=== PATIENT | male | born 1960 | race Caucasian/White ===

== ENCOUNTER 2019-04-07 09:40 | Emergency (ER) | payer OTHER, SELFPAY ==
[2019-04-07 09:55] VITALS: BP 131/82; PULSE 73; RESP 18; TEMP 36.7; O2SAT 96
--- NOTE | 2019-04-07 09:59 | ED.GENADUL_ITS ---
Discharge Plan Disposition Patient Disposition: HOME Condition: Improving Discharge Details Chief Complaint: EyeProblem Clinical Impression: Abrasion of cornea, right Primary Care Provider: Ganesh Knox ED Provider: Paresh Osei Home Meds and New Rx's Prescriptions: Continued simvastatin 40 mg Tablet 40 mg PO DAILY RF: 0 citalopram 20 mg Tablet 20 mg PO DAILY RF: 0 Discharge Instructions Instructions: Corneal Abrasion (ED) Additional Instructions: Please use erythromycin ointment 3-4 times daily for 4 to 5 days time. Return or see regular doctor if you develop increased redness, pain, or any other acute concern. May resume normal routine and activities. Medical Decision Making 58-year-old male presents with right eye foreign body sensation after cutting wood yesterday. Visual acuity is preserved and is symmetric. The right eye conjunctival and sclera are injected, there is a shallow right corneal abrasion outside the axis of vision. Fluorescein exam performed and no Nayeli sign. We will treat with erythromycin ointment. He is stable for outpatient management and understands plan of care and anticipated course of resolution. [facility] General Mode of arrival: ambulatory . Date/Time Provider Initiated Documentation: 04/07/19 09:46 . Limitations to Documentation: no limitations . Information obtained by: patient . History of Present Illness 58 year old M presents to the emergency department with the chief complaint of Splitting wood yesterday. Right eye foreign body sensation today, described as mild, Quality is described as constant, and is localized to the eyes and right. Patient reports no radiation. Patient started experiencing this hour(s) and it has been constant. No relieving factors improve symptom(s), No exacerbating factors reported . Patient did receive the following treatments prior to arrival, none Related Data Home Medications Medication Instructions Recorded Confirmed citalopram 20 mg PO DAILY 04/07/19 04/07/19 simvastatin 40 mg PO DAILY 04/07/19 04/07/19 Allergies Allergy/AdvReac Type Severity Reaction Status Date / Time No Known Allergies Allergy Unverified 04/07/19 10:00 General Stated Complaint: EyeProblem SILVIO: 4 Review of Systems Narrative: Otherwise well. 4 systems reviewed and negative. [facility] Medical History (Updated 04/07/19 @ 10:00 by Kaley Lopez) Seizure disorder (Chronic) Social History Smoking/Tobacco Use Status: Former Tobacco Use Alcohol Intake: former Drug use: Never Substance use type: does not use Do you feel safe at home: Yes Exam Narrative Exam Narrative: GEN: awake, alert, oriented 3. Pleasant, well groomed, interactive. HEAD: Normocephalic, atraumatic ENT: Mucous membranes moist, oropharynx unremarkable, External ear exam unremarkable EYES: PERRL, EOMI. right eye injection, small corneal abrasion right temporal aspect of slight axis of vision. Patient wears reading glasses which he did not have. 20/100 right, left, bilateral NECK: Full ROM, no SHON, no menigismus EXT: Full ROM, no edema, no rash Neuro: Grossly normal neurologic exam, conversant, interactive. Psych: Speech fluent, thoughts congruent, affect normal Course Vital Signs Vital signs: Vital Signs Temperature 36.7 C 04/07/19 09:55 Pulse 73 04/07/19 09:55 Respiratory Rate 18 04/07/19 09:55 Blood Pressure 131/82 04/07/19 09:55 Pulse Oximetry 96 04/07/19 09:55 Temperature 36.7 C 04/07/19 09:55 Temperature Source Tympanic 04/07/19 09:55 Pulse 73 04/07/19 09:55 Respiratory Rate 18 04/07/19 09:55 Blood Pressure 131/82 04/07/19 09:55 Blood Pressure Position Sitting 04/07/19 09:55 Pulse Oximetry 96 04/07/19 09:55 Oxygen Delivery Method Room Air 04/07/19 09:55 Oxygen Flow Rate 0 04/07/19 09:55 Pain Level 2 04/07/19 09:55
[2019-04-07] MEDS: Erythromycin Ophth Oint 3.5 GM TUBE OP (10:22)
== END 2019-04-07 10:19 | disposition home or self-care (01) ==
LOC: ER 10:22
PROVIDERS: Emergency Provider Emergency Medicine; PCP Neuromusculoskeletal Medicine & OMM
DX: S05.01XA Injury of conjunctiva and corneal abrasion without foreign body, right eye, initial encounter (principal); X58.XXXA Exposure to other specified factors, initial encounter
CPT/HCPCS: 99284; 99283

== ENCOUNTER 2023-09-12 19:43 | Emergency (ER) | payer MEDICARE, SELFPAY ==
[2023-09-12] VITALS (13 sets, daily range): BP systolic 115–180; BP diastolic 64–84; PULSE 66–83; RESP 18; TEMP 36.7; O2SAT 88–98
--- NOTE | 2023-09-12 19:45 | DI.RAD_ITS ---
Exam(s) XR CHEST 2V PA LATERAL EXAM: XR CHEST 2V PA LATERAL CLINICAL HISTORY: Cough, SOB. TECHNIQUE: 2D digital imaging was performed. COMPARISON: No exams were available for comparison FINDINGS: 2 views: Heart size is normal. The mediastinum is not widened. Lungs are clear. No infiltrates nor pleural effusions. IMPRESSION: No acute pulmonary findings. DATA REPOSITORY: RADIATION DOSE DELIVERED:
--- NOTE | 2023-09-12 20:03 | W.ED.GENAD ---
Discharge Plan Disposition Patient Disposition: Home Condition: Stable Discharge Details Clinical Impression: URI (upper respiratory infection) Primary Care Provider: Aroldo Gray ED Provider: Janet Billings Home Meds and New Rx's Prescriptions: New prednisone 20 mg tablet 60 mg PO DAILY 5 Days Qty: 15 0RF Continued donepezil 5 mg tablet PO DAILY Patient Comments: TAKE ONE TABLET BY MOUTH EVERY NIGHT AT BEDTIME atorvastatin 80 mg tablet PO DAILY Patient Comments: TAKE ONE TABLET BY MOUTH EVERY DAY escitalopram oxalate 20 mg tablet Patient Comments: TAKE ONE TABLET BY MOUTH EVERY DAY omeprazole 20 mg capsule,delayed release(DR/EC) Patient Comments: TAKE ONE CAPSULE BY MOUTH EVERY DAY aspirin 81 mg tablet,chewable 81 mg PO DAILY simvastatin 40 mg Tablet 40 mg PO DAILY citalopram 20 mg Tablet 20 mg PO DAILY Discharge Instructions Instructions: Upper Respiratory Infection (ED) Additional Instructions: Please use the albuterol inhaler as directed 1 or 2 puffs every 4-6 hours with a spacer. Take the prednisone 60 mg x 5 days. No evidence of pneumonia on the chest x-ray. Negative COVID flu and RSV. Follow up with primary care provider in 3-5 days. Return to ED sooner if any worsening or concerns. Please take Tylenol or Ibuprofen with food every 4-6 hours as needed for pain and swelling. Referrals: Aroldo Gray, [facility] [Primary Care Provider] - 3 days Discharge Data Discharge Date/Time-TO BE ENTERED AT DEPARTURE: 09/12/23 21:54 HPI General Mode of arrival: ambulatory. Date/Time Provider Initiated Documentation: 09/12/23 19:50. Limitations to Documentation: no limitations. Information obtained by: patient, RN notes reviewed and old records reviewed. HPI Narrative: 63 year old male presents with productive cough since Saturday and over the counter remedies are not helping much. Denies chest pain. Does have right upper and lower rhonchi upon auscultation. hx includes CVA, Seizure disorder, hyperlipidemia, Related Data Home Medications Medication Instructions Recorded Confirmed citalopram 20 mg tablet 20 mg PO DAILY 04/07/19 09/12/23 simvastatin 40 mg tablet 40 mg PO DAILY 04/07/19 09/12/23 aspirin 81 mg chewable tablet 81 mg PO DAILY 09/12/23 09/12/23 atorvastatin 80 mg tablet mg PO DAILY 09/12/23 donepezil 5 mg tablet mg PO DAILY 09/12/23 escitalopram oxalate 20 mg tablet mg 09/12/23 omeprazole 20 mg capsule,delayed mg 09/12/23 release prednisone 20 mg tablet 60 mg (3 x 20 mg) PO DAILY 5 days 09/12/23 #15 tabs Previous Rx's Medication Instructions Recorded prednisone 20 mg tablet 60 mg (3 x 20 mg) PO DAILY 5 days 09/12/23 #15 tabs Allergies Allergy/AdvReac Type Severity Reaction Status Date / Time No Known Allergies Allergy Unverified 09/12/23 19:55 General Stated Complaint: RespSymp SILVIO: 3 Review of Systems All systems reviewed & are unremarkable except as noted in HPI and below Respiratory Respiratory: Reports cough and Reports excessive phlegm production Exam Narrative Exam Narrative: Constitutional: Alert and oriented x3. Appears stated age. Normal body habitus. Head: Normocephalic, no trauma. Eyes: Pupils PERRL, Red reflex noted, EOM's intact. Eyelids symmetrical without lesions, discharge, or swelling. ENT: Bilateral TM's WNL, External ear normal to inspection, no mastoid TTP, swelling, or erythema, Nasal turbinates WNL, no nasal discharge. Normal dentition, Posterior pharynx WNL, no exudate. Chest: RRR, Normal S1, S2, distal pulses intact. Resp: Lungs Clear on left, rhonchi noted on right upper and lower Abdomen: Soft, non-distended, Normoactive bowel sounds all 4 quads. Musculoskeletal: Normal gait, Skin: No suspicious rashes or lesions. Capillary refill less than 2 sec. Neurologic: Cranial nerves II-XII intact. Alert and oriented x 3. Motor: No deficits noted. Sensory: Intact bilaterally all 4 extremities. Reflexes: DTR's intact bilaterally.. Hematologic/Lymphatic: No ecchymosis, no lymphadenopathy. Course Vital Signs Vital signs: Vital Signs Temperature 36.7 C 09/12/23 19:46 Pulse 70 09/12/23 19:46 Respiratory Rate 18 09/12/23 19:46 Blood Pressure 180/84 H 09/12/23 19:46 Pulse Oximetry 92 09/12/23 19:46 Temperature 36.7 C 09/12/23 19:46 Pulse 70 09/12/23 19:46 Respiratory Rate 18 09/12/23 19:46 Respiratory Effort Normal 09/12/23 19:52 Respiratory Depth Normal 09/12/23 19:52 Blood Pressure 180/84 H 09/12/23 19:46 Pulse Oximetry 92 09/12/23 19:46 Oxygen Delivery Method Room Air 09/12/23 19:46 Oxygen Flow Rate 0 09/12/23 19:46 Pain Level 0 09/12/23 19:46 Medical Decision Making 63 year old male presents with productive cough since Saturday and over the counter remedies are not helping much. Denies chest pain. Does have right upper and lower rhonchi upon auscultation. hx includes CVA, Seizure disorder, hyperlipidemia, Chest Xray and Fluvid swab ordered. Duo neb Patient o2 sat around 89% RA, additional albuterol neb ordered and 60mg Prednisone. Chest x-ray shows some mild basilar atelectasis otherwise unremarkable. Negative COVID flu RSV. 98% after second neb. Will send patient home with albuterol inhaler and prednisone stent. This text was generated using [employer] dictation system, please disregard any oddities of phrase or misspellings. Imaging Data Radiologic Study: Imaging: X-Ray Radiologist's impression: TECHNIQUE: Imaging protocol: Radiologic exam of the chest. Views: 2 views. COMPARISON: No relevant prior studies available. FINDINGS: Lungs: Mild bibasilar atelectasis. Lungs are otherwise clear. Pleural spaces: Unremarkable. No pleural effusion. No pneumothorax. Heart/Mediastinum: Unremarkable. No cardiomegaly. Bones/joints: Mild degenerative changes of the spine and shoulders. No acute fracture. IMPRESSION: Mild bibasilar atelectasis and chronic osseous changes. Otherwise unremarkable chest. Thank you for allowing us to participate in the care of your patient. Dictated and Authenticated by: Jamaal Weston MD Lab Data Lab results reviewed: Yes I reviewed the patient's lab results. Labs: Laboratory Tests Range/Units 09/12/23 20:04 COVID-19 Source Nasopharynx SARS-CoV-2 (PCR) (Negative) Negative Influenza Type A (PCR) (Negative) Negative Influenza Type B (PCR) (Negative) Negative RSV (PCR) (Negative) Negative Quality:SDOH Health Related Social Needs: No Data to Display PFSH All Active Problems (Updated 09/12/23 @ 21:31 by Janet Billings NP) URI (upper respiratory infection) (Acute) Medical History Seizure disorder Social History Smoking/Tobacco Use Status: Former Tobacco Use Smoking risk assessment performed?: Yes Alcohol Intake: former Drug use: Never Substance use type: does not use Do you feel safe at home: Yes
[2023-09-12] MEDS: Albuterol/Ipratropium 3 ML UPD VIAL UPD (20:14)
[2023-09-12] MEDS: Benzonatate 100 MG CAP PO (20:14)
[2023-09-12 20:51] LABS: COVID-19 PCR Negative (Negative); Influenza A PCR Negative (Negative); Influenza B PCR Negative (Negative); RSV PCR Negative (Negative)
[2023-09-12 20:54] LABS: Source Nasopharynx
--- NOTE | 2023-09-12 21:05 | DI.VRAD_ITS ---
PROCEDURE INFORMATION: Exam: XR Chest Exam date and time: 09/12/2023 8:32 PM Age: 63 years old Clinical indication: Cough and shortness of breath TECHNIQUE: Imaging protocol: Radiologic exam of the chest. Views: 2 views. COMPARISON: No relevant prior studies available. FINDINGS: Lungs: Mild bibasilar atelectasis. Lungs are otherwise clear. Pleural spaces: Unremarkable. No pleural effusion. No pneumothorax. Heart/Mediastinum: Unremarkable. No cardiomegaly. Bones/joints: Mild degenerative changes of the spine and shoulders. No acute fracture. IMPRESSION: Mild bibasilar atelectasis and chronic osseous changes. Otherwise unremarkable chest. Dictated and Authenticated by: Jamaal Weston MD. Ordering:JEFF Gonzales MD
[2023-09-12] MEDS: Albuterol 2.5 MG/3 ML INH SOLN VIAL UPD (21:15)
[2023-09-12] MEDS: predniSONE 20 MG TAB 60 MG PO (21:15)
[2023-09-12] MEDS: Inhaler, Assist Device 1 EACH MC (21:51)
[2023-09-12] MEDS: Albuterol HFA 8 GM 60 PUFF INH IH (21:51)
== END 2023-09-12 21:54 | disposition home or self-care (01) ==
LOC: ER 21:54
PROVIDERS: Emergency Provider Registered Nurse Emergency; PCP Nurse Practitioner Family
DX: J06.9 Acute upper respiratory infection, unspecified (principal); E78.5 Hyperlipidemia, unspecified; G40.909 Epilepsy, unspecified, not intractable, without status epilepticus; Z86.73 Personal history of transient ischemic attack (TIA), and cerebral infarction without residual deficits; Z79.82 Long term (current) use of aspirin; Z79.899 Other long term (current) drug therapy; Z87.891 Personal history of nicotine dependence
CPT/HCPCS: 87637; 99284; 71046; J7512; J7613; J7620

== ENCOUNTER 2024-01-31 15:43 | Outpatient (REF) | payer MEDICARE, SELFPAY ==
[2024-01-31 21:23] LABS: Abs Immature Grans 0.29 10^3/uL (0.0-0.06); HCT 42.3 % (40.0-50.0); MCH 29.3 pg (27.0-33.0); MCHC 33.1 % (32.0-36.0); MCV 89 fL (80-95); MPV 11.2 fL (8.0-11.0); Platelet Count 238 10^3/uL (130-400); RBC 4.78 10^6/uL (4.36-5.78); WBC 7.46 10^3/uL (4.4-10.8)
[2024-01-31 21:37] LABS: ALT 31 U/L (16-63); AST 31 U/L (15-37); Albumin 3.4 g/dL (3.4-5.0); Alkaline Phosphatase 85 U/L (46-116); Anion Gap 9.1 mmol/L (3-11); BUN 15 mg/dL (7-18); Bilirubin, Total 0.58 mg/dL (0.2-1.0); CO2 28.9 mmol/L (21.0-32.0); Calcium 9.1 mg/dL (8.5-10.1); Chloride 98 mmol/L (98-107); Glucose 96 mg/dL (74-106); Potassium 3.8 mmol/L (3.5-5.1); Sodium 136 mmol/L (136-145); Total Protein 6.9 g/dL (6.4-8.2)
[2024-01-31 21:42] LABS: Absolute Neutrophil Count 5.07 10^3/uL (1.2-6.7); Atypical Lymphocytes % 2 %
[2024-01-31 21:43] LABS: Absolute Basophil Count 0.07 10^3/uL (0.0-0.2); Absolute Eosinophil Count 0.15 10^3/uL (0.0-0.7); Absolute Lymphocyte Count 1.12 10^3/uL (1.2-3.4); Absolute Monocyte Count 0.97 10^3/uL (0.1-0.8); Diff Comment Manual Differential; Metamyelocytes % 1; RBC Morphology Normal
== END 2024-01-31 15:44 | disposition home or self-care (01) ==
LOC: LBN 15:43
PROVIDERS: PCP Nurse Practitioner Family; Visit Provider Nurse Practitioner Family
DX: R19.7 Diarrhea, unspecified (principal); R15.9 Full incontinence of feces
CPT/HCPCS: 80053; 85025

== ENCOUNTER 2024-03-11 05:09 | Outpatient (CLI) | payer MEDICARE, SELFPAY ==
[2024-03-11 13:37] LABS: Calculated LDL 59 mg/dL (<100); Cholesterol 126 mg/dL (<200); HDL Cholesterol 37 mg/dL (40-60); Triglyceride 152 mg/dL (<150)
[2024-03-11 19:27] LABS: PSA, Screening 0.4 ng/mL (<=4.5)
== END 2024-03-11 05:10 | disposition home or self-care (01) ==
LOC: LOS 05:09
PROVIDERS: PCP Nurse Practitioner Family; Visit Provider Nurse Practitioner Family
DX: Z13.1 Encounter for screening for diabetes mellitus (principal); Z13.220 Encounter for screening for lipoid disorders; Z12.5 Encounter for screening for malignant neoplasm of prostate
CPT/HCPCS: 36415; 80061; 84153; 83036

== ENCOUNTER → 2024-07-09 08:16 | Outpatient (BNVA) | payer MEDICARE, SELFPAY | PROVIDERS: PCP Nurse Practitioner Family; Referring Provider Nurse Practitioner Family; Visit Provider Nurse Practitioner Adult Health | DX: R47.01 Aphasia (principal); R41.89 Other symptoms and signs involving cognitive functions and awareness; F01.50 Vascular dementia, unspecified severity, without behavioral disturbance, psychotic disturbance, mood disturbance, and anxiety | CPT/HCPCS: 99215; G2212 ==

== ENCOUNTER 2024-08-05 01:12 | Outpatient (CLI) | payer MEDICARE, SELFPAY ==
--- NOTE | 2024-08-05 07:30 | DI.MRI_ITS ---
Exam(s) MR BRAIN WO EXAM: MR BRAIN WO CLINICAL HISTORY: aphasia, cog. impairment, hx stroke,r47.01 TECHNIQUE: Multiplanar multisequence MRI of the brain was performed. COMPARISON: MR MR BRAIN WO CONTRAST from 03/12/2022 FINDINGS: CEREBRAL PARENCHYMA: There is no evidence of intracranial hemorrhage, new mass effect, or shift of midline structures. Th ere are no extra-axial fluid collections. Ventricles are not enlarged or shifted. There is no significant focal signal abnormality in the cerebellar hemispheres nor within the aspen, m idbrain, and thalami. There is no abnormal signal abnormality in the periventricular white matter. Previously described area of FLAIR bright signal abnormality within the subcortical white matter of t he left parietal lobe is again noted, consistent with prior infarct. However, on the present study there is a new focus of FLAIR bright signal abnormality more anteriorly in the left periventricular white matter which also exhibits restricted diffusion, consistent with a cute or subacute ischemic event. This measures approximately 4 mm. Just anterior to this in the lef t periventricular white matter is another FLAIR bright 4-5 mm signal abnormality which was not previo usly present and which also exhibits restricted diffusion consistent with acute ischemic event. In a ddition, there are a few adjacent foci of restricted diffusion and FLAIR bright signal evident in the left occipital lobe. This was also not previously present. There is no restricted diffusion foci evident in the right-side of the brain PITUITARY GLAND: No mass nor parasellar abnormality. No obvious abnormality in the cavernous sinuses. FLOW VOIDS: Flow voids are somewhat difficult to assess because of the amount of motion on the T2 vashti ges but there does not appear to be obvious occlusion of the internal carotid arteries at the skull b ase nor the basilar artery. PARANASAL SINUSES: The visualized paranasal sinuses appear unremarkable. No obvious finding ORBITS: No obvious findings. IMPRESSION: Compared to prior outside MRI of March 2022 there are new acute ischemic events exhibiting restrict ed diffusion in the left periventricular white matter as well as in the left occipital lobe. This in volves both anterior posterior circulations on the left side. There is no evidence of intracranial hemorrhage. Chronic signal abnormality is also noted in the left parietal lobe from prior non recent infarct, thi s being unchanged from the March 2022 MRI study. Referring provider's office notified DATA REPOSITORY:
== END 2024-08-05 01:32 ==
PROVIDERS: PCP Nurse Practitioner Family; Visit Provider Nurse Practitioner Adult Health
DX: R47.01 Aphasia (principal)
CPT/HCPCS: 70551

== ENCOUNTER 2024-08-07 09:51 | Outpatient (CLI) | payer MEDICARE, SELFPAY | END 2024-08-07 09:52 | disposition home or self-care (01) | PROVIDERS: PCP Nurse Practitioner Family; Visit Provider Nurse Practitioner Adult Health | DX: I63.89 Other cerebral infarction (principal) | CPT/HCPCS: 93270 ==

== ENCOUNTER 2024-09-01 07:26 | Outpatient (CLI) | payer MEDICARE, SELFPAY | END 2024-09-01 07:27 | disposition home or self-care (01) | LOC: CARDOPNVT 07:26 | PROVIDERS: PCP Nurse Practitioner Family; Visit Provider Internal Medicine Cardiovascular Disease | DX: I63.9 Cerebral infarction, unspecified (principal) | CPT/HCPCS: 93272 ==